=== PATIENT | female | born 1980 | race Caucasian/White ===

== ENCOUNTER 2018-04-08 19:30 | Inpatient (IN) | payer MEDICAID ==
[~2018-04-08] VITALS: Ht 175.3 cm; Wt 138.6 kg
[~2018-04-08 19:30] MED LIST: FERROUS SULFAT140 MG PO; PRENAVITE1 TAB PO
[2018-04-08 20:54] VITALS: BP 132/84; Ht 175.3 cm; Wt 138.6 kg
[2018-04-08 21:46] LABS: HEMATOCRIT 32.4 % (36.0-48.0); HEMOGLOBIN 10.7 g/dL (12-16); MCH 30.2 pg (26.0-34.0); MCV 91.5 fL (80.0-100.0); MEAN PLATELET VOLUME 10.3 fL (7.4-10.4); RBC 3.54 10x6/uL (4.00-5.40); RDW 13.7 % (11.5-14.5)
[2018-04-08 21:54] LABS: APPEARANCE CLEAR (CLEAR); BILIRUBIN NEGATIVE (NEGATIVE); COLOR YELLOW (YELLOW); GLUCOSE NEGATIVE (NEGATIVE); KETONE NEGATIVE (NEGATIVE); NITRITE NEGATIVE (NEGATIVE); PROTEIN NEGATIVE (NEGATIVE); UROBILINOGEN NORMAL (NORMAL)
[2018-04-09 23:22] VITALS: BP 140/74
[2018-04-10 04:46] LABS: BASOPHILS 0 % (0-2); EOSINOPHILS 0.5 % (0-7); HEMATOCRIT 31.3 % (36.0-48.0); HEMOGLOBIN 10.3 g/dL (12-16); IMMATURE GRANULOCYTES 0.5 % (0-5); LYMPHOCYTES 14.4 % (15-50); MCH 30.2 pg (26.0-34.0); MCHC 32.9 g/dL (31.0-37.0); MCV 91.8 fL (80.0-100.0); MEAN PLATELET VOLUME 10.2 fL (7.4-10.4); NEUTROPHILS 78.6 % (40-80); PLATELET COUNT 224 10x3/uL (130-400); RBC 3.41 10x6/uL (4.00-5.40); RDW 13.7 % (11.5-14.5)
[2018-04-10 04:53] LABS: WBC 11.1 10x3/uL (4.8-10.8)
[2018-04-10 07:29] LABS: RAPID PLASMA REAGIN Non Reactive (Non Reactive)
== END 2018-04-10 13:30 | disposition home or self-care (01) | DRG 775 ==
LOC: D.LD 19:30
PROVIDERS: Obstetrics & Gynecology
PROC: 10E0XZZ Delivery of Products of Conception, External Approach (ICD-10-PCS; principal; 2018-04-09)
DX: O80 Encounter for full-term uncomplicated delivery (principal); Z37.0 Single live birth; Z3A.39 39 weeks gestation of pregnancy